=== PATIENT | male | born 1960 | race Hispanic/Latino ===

== ENCOUNTER 2022-07-24 08:12 | Day surgery (SDC) | payer OTHER ==
[~2022-07-24] VITALS: Ht 175.3 cm; Wt 90.7 kg
[2022-07-24] VITALS (10 sets, daily range): BP systolic 111–138; BP diastolic 74–85
[2022-07-24] MEDS ORDERED: 0.9%NACL 1000ML 1,000 ML IV ONE (09:46)
[2022-07-24] MEDS ORDERED: FAMO40TA7 PO (10:01)
[2022-07-24] MEDS ORDERED: FISH1CAP27 PO (10:01)
[2022-07-24] MEDS ORDERED: PROPOFOL 10 MG/ML 20ML VIAL IV ONE (13:14)
== END 2022-07-24 15:05 | disposition home or self-care (01) ==
LOC: DAH 08:12 → ENDO 08:12
PROVIDERS: ATTEND Internal Medicine Gastroenterology
DX: Z12.11 Encounter for screening for malignant neoplasm of colon (principal); Z20.822 Contact with and (suspected) exposure to COVID-19; K21.00 Gastro-esophageal reflux disease with esophagitis, without bleeding; K62.1 Rectal polyp; K64.0 First degree hemorrhoids; K29.50 Unspecified chronic gastritis without bleeding; K31.89 Other diseases of stomach and duodenum; K44.9 Diaphragmatic hernia without obstruction or gangrene; E80.6 Other disorders of bilirubin metabolism; Z80.0 Family history of malignant neoplasm of digestive organs; Z98.890 Other specified postprocedural states; Z79.899 Other long term (current) drug therapy; Z83.438 Family history of other disorder of lipoprotein metabolism and other lipidemia; Z90.49 Acquired absence of other specified parts of digestive tract; Z83.3 Family history of diabetes mellitus; Z82.49 Family history of ischemic heart disease and other diseases of the circulatory system; Z87.891 Personal history of nicotine dependence
CPT/HCPCS: 87635; 45380; 43239; C9803; J7030 ×2; J2704; A4620; A4215 ×2; A4223; A4222; A4221; A4663; A4606

== ENCOUNTER → 2023-03-20 | Outpatient (CLI) | payer OTHER ==
[~2023-03-20] MED LIST: FAMO40TA7 PO; FISH1CAP27 PO
== END | disposition home or self-care (01) ==
LOC: SHCH 12:47
PROVIDERS: ATTEND Student in an Organized Health Care Education/Training Program
DX: R55 Syncope and collapse (principal); E78.5 Hyperlipidemia, unspecified
CPT/HCPCS: 93306